=== PATIENT | female | born 2005 | race Hispanic/Latino ===

== ENCOUNTER 2024-09-08 08:53 | Emergency (ER) | payer SELFPAY ==
[2024-09-08 10:23] LABS: Specific Gravity 1.021 (1.005-1.030)
[2024-09-08 10:25] LABS: Absolute Eosinophils 0.1 K/uL (0-0.5); Absolute Lymphocytes (CBC) 2.5 K/uL (0.7-4.9); Absolute Monocytes 0.5 K/uL (0.1-1.3); Absolute Neutrophil 3.7 K/uL (1.8-8.0); Basophils % 0.5 % (0-1.3); Eosinophils % 1.1 % (0-4.4); Hematocrit 37.5 % (36.0-45.0); Hemoglobin 12.7 g/dL (12.0-15.0); Lymphocytes % 36.4 % (15.3-44.8); MCH 32.5 pg (27.0-35.0); MCHC 33.8 g/dL (32.0-36.0); MCV 96.4 fL (80-100); MPV 8.4 fL (7.6-11.3); Nucleated Red Blood Cells % 0.1 % (0-0); Platelets 266 thou/uL (152-406); RBC Red Blood Cell Count 3.89 M/uL (3.86-4.86); Red Cell Distribution Width 12.5 % (12.1-15.2)
[2024-09-08 10:31] LABS: Anion Gap 8.5 mEq/L (5.0-15.0); Potassium 3.5 mEq/L (3.5-5.1)
--- NOTE | 2024-09-08 11:25 | EDPHYS ---
Physician Documentation [facility] Name: Raven Cason Age: 19 yrs Sex: Female : 2005 Arrival Date: 09/08/2024 Time: 08:53 Bed DX4 Private MD: ED Physician Ramy An HPI: 09/08 09:55 This 19 yrs old Female presents to ER via Ambulatory with complaints of bo1 Vaginal Bleeding. 10:20 Onset: The symptoms/episode began/occurred gradually, 1 year(s) ago. Modifying factors: bo1 The symptoms are alleviated by nothing, the symptoms are aggravated by nothing. Severity of symptoms: At their worst the symptoms were severe, Pt has passed a big blood clot this AM. The patient's method of control includes nothing. The patient has experienced similar episodes in the past. Hx of heavy vaginal bleeding for a year. Mother has PCOS. 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 - Infectious Disease History:: Denies. - Social history:: Smoking status: Patient reports the use of cigarette tobacco products, Reported history of juuling and/or vaping. ROS: 10:21 Constitutional: Negative for fever, chills, and weight loss, bo1 10:21 Cardiovascular: Negative for chest pain, 10:21 Respiratory: Negative for cough, shortness of breath, 10:21 Abdomen/GI: Positive for Occ sharp pain with periods - 5-6 day flow, Negative for nausea and vomiting, 10:21 Back: Negative for pain at rest, 10:21 : Positive for vaginal bleeding, menstrual abnormality, Occ missed cycles, has not seen a FINANCE TEACHER, Exam: 11:21 Constitutional: This is a well developed, well nourished patient who is awake, alert, bo1 and in no acute distress. Head/Face: Normocephalic, atraumatic. Tearful. 11:21 Constitutional: The patient appears alert, awake, non-toxic, Anxious and tearful 11:21 Eyes: Conjunctiva: no acute changes, Minimally pale. 11:21 Neck: External neck: no acute changes, 11:21 Cardiovascular: Rate: normal, Rhythm: regular, Pulses: no pulse deficits are appreciated, 11:21 Respiratory: the patient does not display signs of respiratory distress, Respirations: normal, Breath sounds: are clear throughout, 11:21 Abdomen/GI: Inspection: abdomen appears normal, Palpation: abdomen is soft and non-tender, 11:21 : Deferred, 11:21 Skin: no rash present. Vital Signs: 09:13 BP 121 / 70; Pulse 70; Resp 16 S; Temp 97.8(TE); Pulse Ox 100% on R/A; Weight 58.97 kg aa5 (R); Height 5 ft. 3 in. (R); 09:13 Body Mass Index 23.03 (58.97 kg, 160.02 cm) aa5 MDM: 09:20 Medical Screening Exam initiated bo1 11:22 Differential diagnosis: menometrorrhagia, menorrhea. bo1 11:23 Data reviewed: vital signs, lab test result(s). ED course: Pt referred to FINANCE TEACHER for bo1 further care. 09/08 09:18 Order name: CBC with Diff; Complete Time: 11:20 ec2 12 09:18 Order name: BMP; Complete Time: 11:20 ec2 09/08 09:18 Order name: Test, Urine; Complete Time: 11:20 ec2 09/08 09:18 Order name: Type And Screen ec2 09/08 10:16 Order name: Labs - recollect needed: recollect type and screen, ramírez pt,use todays bd date please; Complete Time: 10:25 09/08 10:35 Order name: Labs - recollect needed: recollect type and screen again, ramírez pt; bd Complete Time: 11:09 Administered Medications: No medications were administered Disposition Summary: 09/08/24 11:25 Discharge Ordered Notes: Location: Home bo1 Problem: chronic bo1 Symptoms: are unchanged bo1 Condition: Stable bo1 Diagnosis - Secondary dysmenorrhea bo1 Followup: bo1 - With: Monica Meraz MD - When: Upon discharge from the Emergency Department - Reason: Recheck today's complaints, Continuance of care Discharge Instructions: - Discharge Summary Sheet bo1 - Dysmenorrhea, [id number] bo1 Forms: - Medication Reconciliation Form bo1 - Antibiotic Education bo1 - Prescription Opioid Use bo1 - Patient Portal Instructions bo1 - Leadership Thank You Letter bo1 Signatures: Dispatcher [employer] EDJunie Oscar Audri, RN RN aa5 Ramy An MD MD bo1 Corrections: (The following items were deleted from the chart) 09:18 09:18 CBC+H.LAB.BRZ ordered. EDMS EDMS :18 09:18 BASIC METABOLIC PANEL+C.LAB.BRZ ordered. EDMS EDMS 09:18 09:18 Test, Urine+UC.LAB.BRZ ordered. EDMS EDMS 09:18 09:18 TYPE AND SCREEN+BB.LAB.BRZ ordered. EDMS EDMS
--- NOTE | 2024-09-08 11:25 | ER ---
Nurse's Notes [facility] Name: Raven Cason Age: 19 yrs Sex: Female : 2005 Arrival Date: 09/08/2024 Time: 08:53 Bed DX4 Private MD: Diagnosis: Secondary dysmenorrhea Presentation: 09/08 09:13 Chief complaint: Patient states: Started period 09/05/24 and reports vaginal bleeding aa5 with clots, pt states "I've had blood clots before but I haven't seen anyone for it and it's been going on for longer than a year now". Coronavirus screen: At this time, the client does not indicate any symptoms associated with coronavirus-19. Ebola Screen: Patient denies travel to an Ebola-affected area in the 21 days before illness onset. Initial Sepsis Screen: Does the patient meet any 2 criteria? No. Patient's initial sepsis screen is negative. Does the patient have a suspected source of infection? No. Patient's initial sepsis screen is negative. Risk Assessment: Do you want to hurt yourself or someone else? Patient reports no desire to harm self or others. Onset of symptoms was September 05, 2024. 09:13 Acuity: RAEANN 3 aa5 09:13 Method Of Arrival: Ambulatory aa5 Triage Assessment: 09:13 General: Appears comfortable, Behavior is calm, cooperative. Pain: Denies pain. EENT: aa5 No deficits noted. Neuro: Level of Consciousness is awake, alert, obeys commands, Oriented to person, place, time, situation. Cardiovascular: Heart tones S1 S2 present Rhythm is regular. Respiratory: Airway is patent Respiratory effort is even, unlabored, Respiratory pattern is regular, symmetrical. GI: Abdomen is non-distended, Bowel sounds present X 4 quads. Abd is soft and non tender X 4 quads. : Reports vaginal bleeding that is with clots, moderate flow, Denies burning with urination, inability to void, urinary frequency. Derm: Skin is pink, warm \\T\\ dry. Musculoskeletal: Range of motion: intact in all extremities. 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 - Infectious Disease History:: Denies. - Social history:: Smoking status: Patient reports the use of cigarette tobacco products, Reported history of juuling and/or vaping. Screenin:[address] [facility] ED Fall Risk Assessment (Adult) History of falling in the last 3 months, aa5 including since admission No falls in past 3 months (0 pts) Confusion or Disorientation No (0 pts) Intoxicated or Sedated No (0 pts) Impaired Gait No (0 pts) Mobility Assist Device Used No (0 pt) Altered Elimination No (0 pt) Score/Fall Risk Level 0 - 2 = Low Risk Oriented to surroundings, Maintained a safe environment. Abuse screen: Denies threats or abuse. Nutritional screening: No deficits noted. Tuberculosis screening: No symptoms or risk factors identified. Assessment: 11:45 Reassessment: Patient is alert, oriented x 3, equal unlabored respirations, skin aa5 warm/dry/pink. Vital Signs: 09:13 BP 121 / 70; Pulse 70; Resp 16 S; Temp 97.8(TE); Pulse Ox 100% on R/A; Weight 58.97 kg aa5 (R); Height 5 ft. 3 in. (R); 09:13 Body Mass Index 23.03 (58.97 kg, 160.02 cm) aa5 ED Course: 08:59 Patient arrived in ED. mg5 09:13 Arm band placed on. aa5 09:13 Patient has correct armband on for positive identification. aa5 09:15 Triage completed. aa5 09:20 Ramy An MD is Attending Physician. bo1 10:10 Type And Screen Sent. bc6 10:10 Test, Urine Sent. bc6 10:10 BMP Sent. bc6 10:10 CBC with Diff Sent. bc6 10:10 Initial lab(s) drawn, by me, sent to lab. Inserted saline lock: 20 gauge in left bc6 antecubital area, using aseptic technique. Blood collected. Flushed with 10 mL NS. 11:24 Monica Meraz MD is Referral Physician. bo1 11:45 No provider procedures requiring assistance completed. IV discontinued, intact, aa5 bleeding controlled, No redness/swelling at site. Pressure dressing applied. 11:47 Laquita Martinez, RN is Primary Nurse. aa5 Administered Medications: No medications were administered Medication: : VIS not applicable for this client. aa5 Outcome: : Discharge ordered by . bo1 :45 Discharged to home ambulatory, with significant other, aa5 :45 Condition: stable :45 Discharge instructions given to patient, Instructed on discharge instructions, follow up and referral plans. Demonstrated understanding of instructions, follow-up care, :47 Patient left the ED. aa5 Signatures: Laquita Martinez, RN RN aa5 Darby Chopra 6 Ly Felton mg5 Ramy An MD MD bo1
[2024-09-08 12:01] VITALS: BP 121/70; TEMP 97.8; O2SAT 100
== END 2024-09-08 11:47 | disposition home or self-care (01) ==
LOC: ER 08:53
DX: N94.5 Secondary dysmenorrhea (principal); Z72.0 Tobacco use
CPT/HCPCS: 36415; 80048; 81025; 85025; 86850; 86900; 86901; 99283

== ENCOUNTER 2024-11-21 19:07 | Emergency (ER) | payer SELFPAY ==
[2024-11-21] MEDS ORDERED: ONDANSETRON 4 MG/2 ML VIAL ONE (19:51)
[2024-11-21] MEDS ORDERED: LORazepam 2 MG/ML VIAL ONE (19:53)
[2024-11-21] MEDS ORDERED: NA CHLORIDE 0.9% 1,000 ML ONE (19:54)
[2024-11-21] MEDS ORDERED: KETOROLAC 30 MG/ML INJ ONE (19:54)
--- NOTE | 2024-11-21 20:08 | RAD REPORT ---
EXAM: CT brain without contrast HISTORY: HEADACHE COMPARISON: None TECHNIQUE: Multiple contiguous axial images were obtained and a CT of the brain without contrast. Sag ittal and coronal reformats were performed. One or more of the following dose reduction techniques were used: Automated exposure control, adjust ment of the mA and/or kV according to patient size, and/or iterative reconstruction. FINDINGS: No evidence of hydrocephalus, intracranial hemorrhage, or extra-axial fluid collection. The brain is normal in morphology. No evidence of midline shift or areas of brain edema. The calvarium is intact. The visualized paranasal sinuses and mastoid air cells are essentially clear . IMPRESSION: No evidence of acute intracranial abnormality. EXAM: CT of the cervical spine without contrast HISTORY: Neck pain, injury HEADACHE TECHNIQUE: Multiple contiguous axial images were obtained in a CT of the cervical spine without contr ast. Sagittal and coronal reformats were performed. FINDINGS: The vertebral bodies demonstrate normal height and alignment. No evidence of acute fracture or subluxation.. No degenerative changes are present. No prevertebral soft tissue swelling is seen. The posterior facets are well aligned. Normal alignment of the skull base with the cervical spine is seen. The lung apices are unremarkable. IMPRESSION: No evidence of acute osseous abnormality of the cervical spine.
[2024-11-21 20:38] LABS: Absolute Lymphocytes (CBC) 2.8 K/uL (0.7-4.9); Absolute Monocytes 0.7 K/uL (0.1-1.3); Basophils % 0.4 % (0-1.3); Eosinophils % 0.1 % (0-4.4); Hematocrit 38.5 % (36.0-45.0); Hemoglobin 13.4 g/dL (12.0-15.0); Lymphocytes % 29.6 % (15.3-44.8); MCH 32.8 pg (27.0-35.0); MCHC 34.7 g/dL (32.0-36.0); MCV 94.5 fL (80-100); MPV 8.8 fL (7.6-11.3); Monocytes % 6.9 % (3.3-12.3); Nucleated Red Blood Cells % 0.1 % (0-0); Platelets 263 thou/uL (152-406); RBC Red Blood Cell Count 4.08 M/uL (3.86-4.86); Red Cell Distribution Width 13.2 % (12.1-15.2); Specific Gravity < 1.005 (1.005-1.030)
[2024-11-21 20:40] LABS: Specific Gravity < 1.005 (1.005-1.030); Sqamous Epithelial None Seen /HPF (None Seen); Urine Bacteria None Seen /HPF (<20); Urine Bilirubin NEGATIVE (Negative); Urine Blood Negative (Negative); Urine Clarity Clear (Clear); Urine Color Colorless (Yellow); Urine Culture Reflex Order NOT NEEDED; Urine Glucose NEGATIVE (Negative); Urine Ketones NEGATIVE (Negative); Urine Microscopic Reflex YN ORDER UMIC; Urine Nitrite NEGATIVE (Negative); Urine Protein NEGATIVE (Negative); Urine RBC <5 /HPF (None Seen); Urine Urobilinogen Normal (Normal); Urine WBC <5 /HPF (<5); Urine pH 6.5 (5.0-7.0)
[2024-11-21 20:56] LABS: AST/SGOT 28 U/L (15-37); Albumin 4.1 g/dL (3.4-5.0); Alkaline Phosphatase 67 U/L (45-117); Anion Gap 7.4 mEq/L (5.0-15.0); BUN Blood Urea Nitrogen 9 mg/dL (7-18); Bicarbonate 27 mEq/L (21-32); Bilirubin Total 0.5 mg/dL (0.2-1.0); Globulin 4.1 g/dL (2.3-3.5); Glomerular Filtration Rate 127 ml/min (=/>90); Glucose Level 94 mg/dL (74-106); Potassium 3.4 mEq/L (3.5-5.1); Protein, Total 8.2 g/dL (6.4-8.2); Sodium Level 137 mEq/L (136-145)
--- NOTE | 2024-11-21 20:57 | EDPHYS ---
Physician Documentation [facility] Name: Raven Cason Age: 19 yrs Sex: Female : 2005 Arrival Date: 11/21/2024 Time: 19:07 Bed 16 Private MD: ED Physician Jez Galvan HPI: 11/21 19:33 This 19 yrs old Female presents to ER via Ambulatory with complaints of rachel Anxiety, Decreased Appetite, Panic attacks. 19:33 The patient complains of pain to the top of head, forehead, left frontal area, left rachel side of the back of head, left occipital area, left base of the skull, right frontal area, right side of the back of head, right occipital area and right base of the skull. The patient describes the headache as aching. Onset: The symptoms/episode began/occurred 3 day(s) ago. The patient presents to the emergency department with anxiety, over unknown circumstances. Onset: The symptoms/episode began/occurred 3 day(s) ago. Past psychiatric history: Prior diagnosis: no previous psychiatric diagnosis known. Associated signs and symptoms: The patient has no apparent associated signs or symptoms. Headache History: Denies prior headaches. 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 - Infectious Disease History:: Denies. - Social history:: Smoking status: Reported history of juuling and/or vaping. ROS: 19:40 Constitutional: Negative for fever, chills, and weight loss, Eyes: Negative for injury, rachel pain, redness, and discharge, ENT: Negative for injury, pain, and discharge, Neck: Negative for injury, pain, and swelling, Cardiovascular: Negative for chest pain, palpitations, and edema, Respiratory: Negative for shortness of breath, cough, wheezing, and pleuritic chest pain, Abdomen/GI: Negative for abdominal pain, nausea, vomiting, diarrhea, and constipation, Back: Negative for injury and pain, : Negative for injury, bleeding, discharge, and swelling, MS/Extremity: Negative for injury and deformity, Skin: Negative for injury, rash, and discoloration, Allergy/Immunology: Negative for hives, rash, and allergies, Endocrine: Negative for neck swelling, polydipsia, polyuria, polyphagia, and marked weight changes, Hematologic/Lymphatic: Negative for swollen nodes, abnormal bleeding, and unusual bruising, 19:40 Neuro: Positive for headache, of the occipital area and base of the skull, Exam: 19:40 Constitutional: This is a well developed, well nourished patient who is awake, alert, rachel and in no acute distress. Head/Face: Normocephalic, atraumatic. Eyes: Pupils equal round and reactive to light, extra-ocular motions intact. Lids and lashes normal. Conjunctiva and sclera are non-icteric and not injected. Cornea within normal limits. Periorbital areas with no swelling, redness, or edema. ENT: Nares patent. No nasal discharge, no septal abnormalities noted. Tympanic membranes are normal and external auditory canals are clear. Oropharynx with no redness, swelling, or masses, exudates, or evidence of obstruction, uvula midline. Mucous membranes moist. Neck: Trachea midline, no thyromegaly or masses palpated, and no cervical lymphadenopathy. Supple, full range of motion without nuchal rigidity, or vertebral point tenderness. No Meningismus. Chest/axilla: Normal chest wall appearance and motion. Nontender with no deformity. No lesions are appreciated. Cardiovascular: Regular rate and rhythm with a normal S1 and S2. No gallops, murmurs, or rubs. Normal PMI, no JVD. No pulse deficits. Respiratory: Lungs have equal breath sounds bilaterally, clear to auscultation and percussion. No rales, rhonchi or wheezes noted. No increased work of breathing, no retractions or nasal flaring. Abdomen/GI: Soft, non-tender, with normal bowel sounds. No distension or tympany. No guarding or rebound. No evidence of tenderness throughout. Back: No spinal tenderness. No costovertebral tenderness. Full range of motion. Skin: Warm, dry with normal turgor. Normal color with no rashes, no lesions, and no evidence of cellulitis. MS/ Extremity: Pulses equal, no cyanosis. Neurovascular intact. Full, normal range of motion., bilateral aka Neuro: Awake and alert, GCS 15, oriented to person, place, time, and situation. Cranial nerves II-XII grossly intact. Motor strength 5/5 in all extremities. Sensory grossly intact. Cerebellar exam normal. Normal gait. Psych: Awake, alert, with orientation to person, place and time. Behavior, mood, and affect are within normal limits. 19:46 Neck: ROM/movement: is normal, no acute changes, pain, with any movement, limited range rachel of motion, is not appreciated, Meningeal signs: are not present, Kernig's sign is negative, Brudzinski's sign is negative, nuchal rigidity, is not appreciated, Vital Signs: 19:16 BP 129 / 98; Pulse 94; Resp 18; Temp 98.9; Pulse Ox 100% ; Weight 54.43 kg; Height 5 me1 ft. 3 in. ; Pain 0/10; 19:49 BP 110 / 71; Pulse 75; Resp 20; Temp 97.9; Pulse Ox 100% ; ay 20:30 BP 97 / 66; Pulse 67; Resp 19; Pulse Ox 100% ; ay 21:00 BP 106 / 72; Pulse 67; Resp 19; Pulse Ox 100% ; ay 19:16 Body Mass Index 21.26 (54.43 kg, 160.02 cm) me1 19:16 Pain Scale: Adult me1 [place] Coma Score: 19:42 Eye Response: spontaneous(4). Motor Response: obeys commands(6). Verbal Response: rachel oriented(5). Total: 15. MDM: 19:13 Medical Screening Exam initiated rachel 19:25 Medical Screening Exam initiated rachel 19:42 Differential diagnosis: cluster headache, drug withdrawal. acute psychotic break, rachel depression. Data reviewed: vital signs, nurses notes, lab test result(s), EKG, radiologic studies. Consideration of Admission/Observation Escalation of care including admission/observation considered. I considered the following discharge prescriptions or medication management in the emergency department Medications were administered in the Emergency Department. See MAR. Independent interpretation of the following test(s) in the Emergency Department CT Scan: My interpretation is ct head and c spine. Historians other than the Patient: Spouse/Significant Other: sign other. Care significantly affected by the following chronic conditions: asthma, anxiety. 11/21 19:32 Order name: CBC with Diff; Complete Time: 20:56 [facility] 11/21 19:32 Order name: Comprehensive Metabolic Panel [facility] 11/21 19:32 Order name: Urinalysis w/ reflexes; Complete Time: 20:56 [facility] 11/21 19:32 Order name: PREGU; Complete Time: 20:56 [facility] 11/21 19:32 Order name: CT Head C Spine; Complete Time: 20:56 rachel Administered Medications: 20:32 Drug: Ketorolac IVP 30 mg IVP once Route: IVP; Site: left antecubital; ay 21:00 Follow up: Response: No adverse reaction ay 20:32 Drug: Ondansetron IVP 4 mg IVP once; over 2 minutes Route: IVP; Site: left antecubital; ay 21:00 Follow up: Response: No adverse reaction ay 20:32 Drug: Ativan IVP 1 mg IVP once Route: IVP; Site: left antecubital; ay 21:00 Follow up: Response: No adverse reaction ay 20:33 Drug: NS 0.9% IV 1000 ml IV at 1 bolus Per protocol; to be given as a bolus over 60 ay minutes Route: IV; Rate: 1 bolus; Site: left antecubital; 21:00 Follow up: IV Status: Completed infusion; IV Intake: 1000ml ay Disposition Summary: 11/21/24 20:57 Discharge Ordered Notes: Location: Home rachel Problem: new rachel Symptoms: have improved rachel Condition: Stable rachel Diagnosis - Headache rachel - Anxiety disorder, unspecified rachel Followup: rachel - With: Private Physician - When: 2 - 3 days - Reason: Recheck today's complaints, Continuance of care, Re-evaluation by your physician Followup: rachel - With: Major Figueroa MD - When: 2 - 3 days - Reason: Recheck today's complaints, Re-evaluation by your physician Discharge Instructions: - Discharge Summary Sheet rachel - Panic Attack rachel - General Headache Without Cause rachel - Panic Attack, [id number] rachel - General Headache Without Cause, [id number] rachel - Managing Anxiety, Adult rachel Forms: - Medication Reconciliation Form rachel - Antibiotic Education rachel - Prescription Opioid Use rachel - Patient Portal Instructions [facility] - Leadership Thank You Letter [facility] Prescriptions: - Hydroxyzine HCl 25 mg Oral Tablet - take 1 tablet ORAL route every 6 hours As needed; 30 tablet; Refills: 0, rachel Product Selection Permitted - Ibuprofen 600 mg Oral tablet - take 1 tablet ORAL route every 8 hours As needed take with food; 21 tablet; rachel Refills: 0, Product Selection Permitted - Zofran 4 mg Oral tablet - take 1 tablet ORAL route every 8-12 hours As needed prn; 20 tablet; Refills: 0, rachel Product Selection Permitted Signatures: Dispatcher [employer] Jez Kumar, Valencia Allen MD, cha, RN RN me1 Guanako Woodruff, RN RN ay
--- NOTE | 2024-11-21 20:57 | ER ---
Nurse's Notes [facility] Name: Raven Cason Age: 19 yrs Sex: Female : 2005 Arrival Date: 11/21/2024 Time: 19:07 Bed 16 Private MD: Diagnosis: Headache;Anxiety disorder, unspecified Presentation: 11/21 19:16 Chief complaint: Patient states: for the past 2-3 weeks patient gets a warm, tingly me1 feeling up the back of her neck and shoots up to the back of her head. Feels like a panic attack- starts to cry, feels sad. Denies SI. States the thought of eating makes her nauseated due to decreased appetite. Coronavirus screen: Vaccine status: Patient reports being unvaccinated. Ebola Screen: No symptoms or risks identified at this time. Initial Sepsis Screen: Does the patient meet any 2 criteria? No. Patient's initial sepsis screen is negative. Does the patient have a suspected source of infection? No. Patient's initial sepsis screen is negative. Risk Assessment: Do you want to hurt yourself or someone else? Patient reports no desire to harm self or others. Onset of symptoms is unknown. 19:16 Method Of Arrival: Ambulatory ms1 19:16 Acuity: RAEANN 4 me1 SAP GRC SECURITY: 19:20 LMP 11/01/2024, unknown me1 Historical: - Allergies: 19:20 No Known Allergies; me1 - PMHx: 19:20 Asthma; me1 - PSHx: 19:20 None; me1 - Immunization history:: Adult Immunizations up to date. - Infectious Disease History:: Denies. - Social history:: Smoking status: Reported history of juuling and/or vaping. Screenin:25 [facility] ED Fall Risk Assessment (Adult) History of falling in the last 3 months, ay including since admission No falls in past 3 months (0 pts) Confusion or Disorientation No (0 pts) Intoxicated or Sedated No (0 pts) Impaired Gait No (0 pts) Mobility Assist Device Used No (0 pt) Altered Elimination No (0 pt) Score/Fall Risk Level 0 - 2 = Low Risk Oriented to surroundings, Maintained a safe environment, Educated pt \T\ family on fall prevention, incl call for assistance when getting out of bed. Abuse screen: Denies threats or abuse. Nutritional screening: No deficits noted. Tuberculosis screening: No symptoms or risk factors identified. Assessment: 19:25 General: Appears distressed, uncomfortable, Behavior is calm, cooperative. Pain: Denies ay pain. Neuro: Level of Consciousness is awake, alert, obeys commands, Oriented to person, place, time, situation, Speech is normal. Cardiovascular: Capillary refill < 3 seconds. Respiratory: Airway is patent Respiratory effort is even, unlabored, Respiratory pattern is regular, symmetrical. GI: No signs and/or symptoms were reported involving the gastrointestinal system. : No signs and/or symptoms were reported regarding the genitourinary system. EENT: No signs and/or symptoms were reported regarding the EENT system. Derm: No signs and/or symptoms reported regarding the dermatologic system. Vital Signs: 19:16 BP 129 / 98; Pulse 94; Resp 18; Temp 98.9; Pulse Ox 100% ; Weight 54.43 kg; Height 5 me1 ft. 3 in. ; Pain 0/10; 19:49 BP 110 / 71; Pulse 75; Resp 20; Temp 97.9; Pulse Ox 100% ; ay 20:30 BP 97 / 66; Pulse 67; Resp 19; Pulse Ox 100% ; ay 21:00 BP 106 / 72; Pulse 67; Resp 19; Pulse Ox 100% ; ay 19:16 Body Mass Index 21.26 (54.43 kg, 160.02 cm) me1 19:16 Pain Scale: Adult me1 [place] Coma Score: 19:42 Eye Response: spontaneous(4). Motor Response: obeys commands(6). Verbal Response: rachel oriented(5). Total: 15. ED Course: 19:10 Patient arrived in ED. gm2 19:12 Jez Galvan MD is Attending Physician. rachel 19:20 Triage completed. me1 19:20 Arm band placed on Patient placed in an exam room. me1 19:25 Patient has correct armband on for positive identification. Bed in low position. Call ay light in reach. Side rails up X2. 19:25 Inserted saline lock: 20 gauge in left antecubital area, using aseptic technique. ay 19:29 Guanaok Woodruff, EVERETTE is Primary Nurse. ay 19:51 CT Head C Spine In Process Unspecified. EDMS 20:57 Major Figueroa MD is Referral Physician. rachel 21:37 IV discontinued, intact, bleeding controlled, No redness/swelling at site. Pressure ay dressing applied. Administered Medications: 20:32 Drug: Ketorolac IVP 30 mg IVP once Route: IVP; Site: left antecubital; ay 21:00 Follow up: Response: No adverse reaction ay 20:32 Drug: Ondansetron IVP 4 mg IVP once; over 2 minutes Route: IVP; Site: left antecubital; ay 21:00 Follow up: Response: No adverse reaction ay 20:32 Drug: Ativan IVP 1 mg IVP once Route: IVP; Site: left antecubital; ay 21:00 Follow up: Response: No adverse reaction ay 20:33 Drug: NS 0.9% IV 1000 ml IV at 1 bolus Per protocol; to be given as a bolus over 60 ay minutes Route: IV; Rate: 1 bolus; Site: left antecubital; 21:00 Follow up: IV Status: Completed infusion; IV Intake: 1000ml ay Intake: 21:00 IV: 1000ml; Total: 1000ml. ay Outcome: 20:57 Discharge ordered by . rachel 21:37 Discharged to home ambulatory, ay 21:37 Condition: stable 21:37 Discharge instructions given to patient, Instructed on discharge instructions, follow up and referral plans. medication usage, Demonstrated understanding of instructions, follow-up care, medications, Prescriptions given X 4, 21:38 Patient left the ED. ay Signatures: Dispatcher [employer] Jez Kumar MD MD cha Eddleman, Michelle, RN RN 1 Arleen Fung 2 Guanako Woodruff RN RN ay Corrections: (The following items were deleted from the chart) 19:22 19:16 Chief complaint: Patient states: for the past 2-3 weeks patient gets a warm, me1 tingly feeling up the back of her neck and shoots up to the back of her head. Feels like a panic attack- starts to cry, feels sad. Denies SI. me1 19:22 19:16 Chief complaint: Patient states: for the past 2-3 weeks patient gets a warm, me1 tingly feeling up the back of her neck and shoots up to the back of her head. Feels like a panic attack- starts to cry, feels sad. Denies SI. States the thought of eating makes her nauseated. me1
[2024-11-21 20:59] LABS: ALT/SGPT < 14 U/L (13-56)
[2024-11-21 21:48] VITALS: O2SAT 100
[2024-11-21 21:49] VITALS: TEMP 97.9
[2024-11-21 21:51] VITALS: BP 106/72
== END 2024-11-21 21:38 | disposition home or self-care (01) ==
LOC: ER 19:07
DX: R51.9 Headache, unspecified (principal); F41.9 Anxiety disorder, unspecified
CPT/HCPCS: 36415; 70450; 72125; 80053; 81001; 81025; 85025; 96374; 96375; 99284; J2405; J7030